=== PATIENT | male | born 1980 | race Caucasian/White ===

== ENCOUNTER 2019-03-04 00:54 | Emergency (ER) | payer SELFPAY ==
[~2019-03-04] VITALS: Ht 182.9 cm; Wt 74.8 kg
[2019-03-04 00:57] VITALS: BP 126/85
--- NOTE | 2019-03-04 01:01 | NUR ---
PT REFUSING TO BE EVALUATED BY MD "ITS TAKING TOO LONG. I CANT WALK!. MY LEGS HURT!" PT WALKED OUT OF EMERGENCY DEPARTMENT. IN STABLE CONDITION. -SOB. Aox4.
== END 2019-03-04 02:14 | disposition left against medical advice (07) ==
LOC: ER 00:59
DX: M79.673 Pain in unspecified foot (principal); Z53.21 Procedure and treatment not carried out due to patient leaving prior to being seen by health care provider